=== PATIENT | male | born 2000 | race African-American/Black ===

== ENCOUNTER 2019-04-06 21:47 | Emergency (ER) | payer SELFPAY ==
[~2019-04-06] VITALS: Ht 177.8 cm; Wt 72.7 kg
[2019-04-06 22:07] VITALS: Ht 177.8 cm; Wt 72.7 kg
[2019-04-06 22:49] LABS: HEMATOCRIT 45.7 % (42.0-54.0); HEMOGLOBIN 15.5 g/dL (13.5-17.5); MCH 30.4 pg (26.0-34.0); MCHC 33.9 g/dL (31.0-37.0); MCV 89.6 fL (80.0-100.0); MEAN PLATELET VOLUME 10.8 fL (7.4-10.4); PLATELET COUNT 207 10x3/uL (130-400); RDW 12.7 % (11.5-14.5); WBC 7.1 10x3/uL (4.8-10.8)
[2019-04-06 22:52] LABS: APTT 25.4 SECONDS (22.8-39.4); INR 1.09 (0.85-1.17); PROTIME 13.6 SECONDS (11.6-15.0)
[2019-04-06 23:01] LABS: ALBUMIN 4.5 g/dL (3.4-5.0); BILIRUBIN - TOTAL 0.54 mg/dL (0.2-1.3); CALCIUM 9.1 mg/dL (8.5-10.1); CARBON DIOXIDE 27.2 mmol/L (21.0-32.0); CREATININE - SERUM 1.4 mg/dL (0.6-1.3); POTASSIUM - SERUM 3.2 mmol/L (3.5-5.1); PROTEIN - SERUM 7.9 g/dL (6.4-8.2)
[2019-04-06 23:07] LABS: BASOPHILS 2 % (0-2); EOSINOPHILS 2 % (0-7); LYMPHOCYTES 59 % (15-50); MONOCYTES 5 % (2-11); NEUTROPHILS 31 % (40-80); PLATELET ESTIMATE NORMAL
[2019-04-07] MEDS ORDERED: AUGMENTIN 875-11 TAB PO (00:23)
[2019-04-07] MEDS ORDERED: HYDROCODON-ACE1 EA10 PO (00:23)
[2019-04-07] MEDS ORDERED: CLEOCIN HCL300 MG PO (00:23)
[2019-04-07 02:02] VITALS: BP 119/75
== END 2019-04-07 02:03 | disposition home or self-care (01) ==
LOC: D.ER 21:47
PROVIDERS: Family Medicine
DX: S71.131A Puncture wound without foreign body, right thigh, initial encounter (principal); S81.831A Puncture wound without foreign body, right lower leg, initial encounter; W34.00XA Accidental discharge from unspecified firearms or gun, initial encounter